=== PATIENT | female | born 1930 | race African-American/Black ===

== ENCOUNTER 2021-01-25 18:09 | Emergency (ER) | payer BC, MEDICARE ==
[~2021-01-25] VITALS: Ht 157.5 cm; Wt 61.1 kg
[2021-01-25 18:09] VITALS: BP 163/83
[2021-01-25] MEDS ORDERED: PROPOFOL 100 ML IV ONE (18:26)
[2021-01-25] MEDS ORDERED: IV NORMAL SALINE 1000ML BAG 1,000 ML IV SCH (18:30)
[2021-01-25] MEDS ORDERED: PROPOFOL 100 ML IV PRN (18:30)
--- NOTE | 2021-01-25 18:38 | PHYS DOC ---
Past Medical History Past Medical History: A-Fib, CAD, Hypertension, Stroke (with right sided weakness/deficit) Past Medical History Unable to obtain due to altered mental status Past Surgical History: Hysterectomy Past Surgical History Unable to obtain due to altered mental status Smoking Status: Former Smoker Alcohol Use: None Drug Use: None Social History Unable to obtain due to altered mental status General Adult EDM: Chief Complaint: NEURO SYMPTOMS/DEFICITS HPI: HPI: Patient is a 89-year-old female presents via EMS as code stroke. EMS reports patient was sitting eating with her family when she had reported seizure-like activity. Daughter reports her mouth "was open and full of food" and her right arm and both legs became "stiff". Patient was not responding and therefore daughter called 911. Daughter reports last known well at 1745. Hx of prior stroke. Daughter reports she thinks that there was some "bleeding involved" on prior stroke. Per [employer] review there was MRI from 01/29/15 that noted 4.2 x 2.9 cm acute infarct in anterior right cerebellar hemisphere with hemorrhagic transformation". Denies history of seizures. Denies use of blood thinners. Denies prior trauma. EMS reports Accucheck of 157 in route. History of present illness limited secondary to altered mental status Review of Systems: Review of Systems: Review of systems limited secondary to altered mental status Heart Score: C/O Chest Pain: N/A Current Medications: Current Medications Medications (Trade) Dose Ordered Sig/Claudia Start Time Stop Time Status Last Admin Dose Admin Chlorhexidine Gluconate (Peridex) 15 ml BID 01/25/21 21:00 UNV Fentanyl Citrate (Fentanyl 2ml Vial) 25 mcg PRN Q1HR PRN 01/25/21 18:30 UNV Propofol 100 ml @ 0 mls/hr CONT PRN 01/25/21 18:30 UNV Sodium Chloride 1,000 ml @ 1,000 mls/hr Q1H 01/25/21 18:30 01/25/21 19:29 UNV Allergies: Allergies: Allergies Coded Allergies Type Severity Reaction Last Updated Verified No Known Drug Allergies 01/26/15 No Physical Exam: PE: Constitutional: Elderly, unresponsive, right arm tremor HENT: Normocephalic, atraumatic, dentures with food remnants noted Eyes: Pupils 3mm, forced deviation bilaterally to right, conjunctiva normal, no discharge Neck: Kyphosis noted, supple Lungs & Thorax: Coarse breath sounds, equal chest rise and fall Abdomen: Soft, no tenderness Skin: Warm, dry, no erythema, no rash Extremities: No edema, no deformity, right arm tremor noted Neurologic: GCS 6 (eye 1, verbal 1, motor 4), right facial droop, bilateral eye forced deviation to right Current Patient Data: Vital Signs: Vital Signs Date Time Temp Pulse Resp B/P (MAP) Pulse Ox O2 Delivery O2 Flow Rate FiO2 01/25/21 18:23 100 Ventilator EKG: EKG: @1823 NSR at 63bpm, NO ST elevation, QRS 110ms, QT/QTc 414/427ms, t wave inversion aVL Radiology/Procedures: Radiology/Procedures: PROCEDURE: CHEST AP & KUB INDICATION: Status post intubation and enteric tube placement COMPARISON: January 2015 IMPRESSION: Chest: Single view obtained. Endotracheal tube midthoracic trachea. Enteric tube coursing below the diaphragm. There is some coarsening of the bilateral lung markings without a well-defined focal airspace consolidation. Degenerative changes of the spine. ABDOMEN: Single view obtained. Enteric tube is seen at the left-sided the abdomen at the expected location of the stomach. Degenerative changes the spine with scoliotic curvature. Moderate amount of stool within the colon. Air-filled distended loops of bowel are seen within the abdomen and a nonspecific pattern but causes such as ileus or obstruction not excluded on plain film. Degenerative changes the hips. Electronically signed by: Jason Rm MD (01/25/2021 7:46 PM) [id number] PROCEDURE: CT CODE STROKE HEAD WO Exam: CT head INDICATION: Stroke TECHNIQUE: Sequential axial images through the head were obtained without the administration of IV contrast. Comparisons: 02/03/2015 FINDINGS: No focal parenchymal lesion or hemorrhage is identified. There is no midline shift or sulcal effacement. Patchy hypodensity in the periventricular white matter, progressed when compared to study in 2015. Chronic appearing infarct at the right cerebellum. No acute vascular territory infarction is identified. Chu-white distinction is preserved. The ventricular system is within normal limits without compression hydrocephalus. The basal cisterns are well maintained. The visualized portions of the paranasal sinuses and mastoid air cells are well- pneumatized. No acute fractures. IMPRESSION: No acute hemorrhage. Moderate small vessel ischemic change which is progressed when compared to the prior exam in 2014. Exposure: One or more of the following in the visualized dose reduction techniques were utilized for this examination: 1. Automated exposure control 2. Adjustment of the MA and/or KV according to patient size Use of iterative of reconstructive technique FOR INTERNAL CODING PURPOSES Critical result: Findings discussed with Dr. Nguyen at 01/25/2021 6:50 PM. RESULT CODE: (C) Electronically signed by: Jairo Diamond MD (01/25/2021 6:55 PM) [facility]: CT CERVICAL SPINE WO CONTRAST Exam: CT cervical spine without contrast INDICATION: Altered mental status, fall TECHNIQUE: Sequential axial images through the cervical spine obtained without IV contrast. Sagittal and coronal reformatted images were reconstructed from the axial data and reviewed. Comparisons: CT head without contrast same day FINDINGS: Vertebral body heights and alignment are well-maintained. Fracture to the cervical spine is not identified. Multilevel spondylotic change in cervical spine with degenerative disc disease greatest at C5-C6 and C6-C7. Mild bilateral facet arthropathy is also noted. Visualized paraspinal soft tissues are unremarkable. IMPRESSION: Negative CT C-spine for acute traumatic injury. Exposure: One or more of the following in the visualized dose reduction techniques were utilized for this examination: 1. Automated exposure control 2. Adjustment of the MA and/or KV according to patient size 3. Use of iterative of reconstructive technique Electronically signed by: Jairo Diamond MD (01/25/2021 7:16 PM) [facility] Course & Med Decision Making: Course & Med Decision Making Pertinent Labs and Imaging studies reviewed. (See chart for details) Elderly patient with history of prior CVA with hemorrhagic component presents as CODE STROKE with sudden unresponsiveness and stiffness to limbs concerning for possible seizure-like activity. Patient continued with unresponsiveness and right arm tremor with forced deviation of eyes as well as right facial droop. Patient also noted to have retained food in mouth. Given GCS of 6 and concern for possible inability to protect airway, decision to place ET tube. RSI performed and ET tube successfully placed. Chest x-ray confirms placement. Patient then sent immediately to CT for imaging. CT head without acute hemorrhage. Given history of hemorrhagic component which was confirmed on MRI from 01/29/2015 per [facility] review, decision to hold TPA at this time. Discussed case and decision with Dr. Joshi (neurology), who is in agreement. Requests administration of Keppra 500mg IVPB q12 and to obtain CTA head and neck. Labs obtained and posted to chart. Lactic acid elevated likely secondary to seizure like activity. Some difficulty with IV access in order to obtain CTA. IV access achieved and CTA obtained and noted with significant clot burden to right internal carotid. Concern for need for interventional evaluation and treatment. Discussed with family regarding and requesting [facility]. Utilized [facility] transfer line. Discussed with Dr. Benja Patel (neurology) regarding. Images clouded over to [facility]. Patient requiring emergent transfer for further neurointerventional evaluation and possible treatment. Discussed with Dr. Benja Patel (neurology) who is in agreement with transfer for neurointerventional evaluation and possible treatment. Discussed findings and plan with family, who acknowledge understanding and agreement. Dragon Disclaimer: Dragon Disclaimer: This electronic medical record was generated, in whole or in part, using a voice recognition dictation system. Intubation Intubation : Intubation Method: orotracheal Tube Size (cm): 7.5 Breath Sounds after Intubation: equal Intubation Complications: no complications Post Intubation Xray: Yes Progress Emergent consent utilized. Time out performed. Hand hygiene utilized. RSI performed with 20 mg of etomidate and 50 mcg of rocuronium. [place] scope then utilized with successful placement of 7.5 ET tube which was marked 22cm at the lip. Good CO2 color change. Equal chest rise and fall with auscultation. No sounds noted over epigastrium. ET tube then secured. Chest x-ray obtained which appears to have slightly high riding ET tube. ET tube then advanced and marked 24 cm at the lip. Departure Departure Impression: Primary Impression: Altered mental status Qualified Codes: R41.82 - Altered mental status, unspecified Additional Impression: Lactic acidosis Disposition: 02 DC/TRF OTHER SHORT TERM HOS ([facility] for Neurointerventional e valuation and possible treatment) Admitting Physician: RENETTA (Manny) Condition: GUARDED Referrals: KEARA BRAVO (PCP) NIHSS Stroke Scale NIH Stroke Scale: NIH Stroke Scale Response (Comments) Value Level of Consciousness: 3 Unresponsive 3 LOC Questions: 2 Answers neither correct 2 LOC Commands: 2 Perform neither task 2 Best Gaze: 2 Forced deviation 2 Facial Palsy: 2 Partial paralysis 2 Motor - Left Arm 3 Limb falls 3 Motor - Right Arm 3 Limb falls 3 Motor - Left Leg 3 Limb falls 3 Motor: Right Leg 3 Limb falls 3 Best Language: 3 Mute 3 Dysathria: 3 Intubated 0 Extinction and Inattention: 2 Extinction 2 Total 28 Critical Care Time Critical care time was 45 minutes which includes time at bedside, spent in discussion of patient's care with specialists and/or family members, with interpretation of laboratory and/or radiological studies and is exclusive of procedures. TIM NGUYEN DO Jan 25, 2021 18:38
[2021-01-25 18:39] LABS: BASO # 0.1 x10^3/uL (0.0-0.2); BASO % 1 % (0-3); EOS # 0.3 x10^3/uL (0.0-0.7); EOS % 5 % (0-3); HEMATOCRIT 35.9 % (36.0-47.0); LYMPH # 1.8 x10^3/uL (1.0-4.8); LYMPH % 36 % (24-48); MEAN CORPUSCULAR HEMOGLOBIN 29 pg (25-35); MEAN CORPUSCULAR HGB CONC 33 g/dL (31-37); MEAN CORPUSCULAR VOLUME 88 fL (79-100); MONO # 0.5 x10^3/uL (0.0-1.1); MONO % 10 % (0-9); NEUT # 2.3 x10^3/uL (1.8-7.7); NEUT % 47 % (31-73); PLATELET COUNT 208 x10^3/uL (140-400); RED BLOOD COUNT 4.09 x10^6/uL (3.50-5.40); RED CELL DISTRIBUTION WIDTH 13.2 % (11.5-14.5)
[2021-01-25] MEDS ORDERED: ETOMIDATE 20 MG/10 ML VIAL. IV ONE ×2 (18:40→19:15)
[2021-01-25] MEDS ORDERED: ROCURONIUM 50 MG/5 ML VIAL. ONE (18:40)
[2021-01-25 18:53] LABS: PROTHROMBIN TIME PATIENT 14.2 SEC (11.7-14.0)
--- NOTE | 2021-01-25 18:57 | RAD ---
Exam: CT head INDICATION: Stroke TECHNIQUE: Sequential axial images through the head were obtained without the administration of IV co ntrast. Comparisons: 02/03/2015 FINDINGS: No focal parenchymal lesion or hemorrhage is identified. There is no midline shift or sulcal effaceme nt. Patchy hypodensity in the periventricular white matter, progressed when compared to study in 2015. Ch ronic appearing infarct at the right cerebellum. No acute vascular territory infarction is identified . Chu-white distinction is preserved. The ventricular system is within normal limits without compression hydrocephalus. The basal cisterns are well maintained. The visualized portions of the paranasal sinuses and mastoid air cells are well-pneumatized. No acute fractures. IMPRESSION: No acute hemorrhage. Moderate small vessel ischemic change which is progressed when compared to the p rior exam in 2015. Exposure: One or more of the following in the visualized dose reduction techniques were utilized for this examination: 1. Automated exposure control 2. Adjustment of the MA and/or KV according to patient size Use of iterative of reconstructive technique FOR INTERNAL CODING PURPOSES Critical result: Findings discussed with Dr. Hernandez at 01/25/2021 6:50 PM. RESULT CODE: (C) Electronically signed by: Jairo Diamond MD (01/25/2021 6:55 PM) [facility]
[2021-01-25 19:09] LABS: BILIRUBIN,URINE NEGATIVE (NEG); CLARITY,URINE CLEAR; COLOR,URINE YELLOW; NITRITE,URINE NEGATIVE (NEG); PROTEIN,URINE NEGATIVE (NEG-TRACE)
[2021-01-25] MEDS: fentaNYL PF VIAL 100 MCG/2 ML VIAL IV PRN ×3 (19:09→21:47)
[2021-01-25] MEDS ORDERED: IOHEXOL 350 MG/ML 100 ML VIAL. IV ONE (19:15)
[2021-01-25] MEDS ORDERED: ROCURONIUM 50 MG/5 ML VIAL. IV ONE (19:15)
--- NOTE | 2021-01-25 19:19 | RAD ---
Exam: CT cervical spine without contrast INDICATION: Altered mental status, fall TECHNIQUE: Sequential axial images through the cervical spine obtained without IV contrast. Sagittal and coronal reformatted images were reconstructed from the axial data and reviewed. Comparisons: CT head without contrast same day FINDINGS: Vertebral body heights and alignment are well-maintained. Fracture to the cervical spine is not identified. Multilevel spondylotic change in cervical spine with degenerative disc disease greatest at C5-C6 and C6-C7. Mild bilateral facet arthropathy is also noted. Visualized paraspinal soft tissues are unremarkable. IMPRESSION: Negative CT C-spine for acute traumatic injury. Exposure: One or more of the following in the visualized dose reduction techniques were utilized for this examination: 1. Automated exposure control 2. Adjustment of the MA and/or KV according to patient size 3. Use of iterative of reconstructive technique Electronically signed by: Jairo Diamond MD (01/25/2021 7:16 PM) [facility]
[2021-01-25 19:27] LABS: HYALINE CASTS, URINE MODERATE /HPF
[2021-01-25 19:28] LABS: AMORPHOUS SEDIMENT,UR PRESENT /HPF
[2021-01-25] MEDS ORDERED: CONTRAST GIVEN. MC PRN (19:30)
[2021-01-25] MEDS ORDERED: ASPIRIN RECTAL 300 MG SUPP. RC ONE (19:30)
[2021-01-25] MEDS ORDERED: levETIRAcetam 500 MG in IV DEXTROSE 5% 100ML 100 ML IV ONE (19:30)
[2021-01-25 19:31] LABS: RBC,URINE OCC /HPF (0-2); WBC,URINE OCC /HPF (0-4)
[2021-01-25 19:32] LABS: BACTERIA,URINE FEW /HPF (0-FEW)
--- NOTE | 2021-01-25 19:49 | RAD ---
INDICATION: Status post intubation and enteric tube placement COMPARISON: January 2015 IMPRESSION: Chest: Single view obtained. Endotracheal tube midthoracic trachea. Enteric tube coursing below the d iaphragm. There is some coarsening of the bilateral lung markings without a well-defined focal airspa ce consolidation. Degenerative changes of the spine. ABDOMEN: Single view obtained. Enteric tube is seen at the left-sided the abdomen at the expected loc ation of the stomach. Degenerative changes the spine with scoliotic curvature. Moderate amount of sto ol within the colon. Air-filled distended loops of bowel are seen within the abdomen and a nonspecifi c pattern but causes such as ileus or obstruction not excluded on plain film. Degenerative changes th e hips. Electronically signed by: Jason Rm MD (01/25/2021 7:46 PM) [id number]
[2021-01-25 20:41] LABS: GFR 71.3
[2021-01-25 20:52] LABS: CALCIUM 8.6 mg/dL (8.5-10.1); CREATININE 0.9 mg/dL (0.6-1.0); POTASSIUM 3.3 mmol/L (3.5-5.1)
[2021-01-25] MEDS ORDERED: CHLORHEXIDINE 0.12% 15 ML MOUTHWASH. MM SCH (21:00)
[2021-01-25 21:03] LABS: ALBUMIN 3.6 g/dL (3.4-5.0); MAGNESIUM 1.8 mg/dL (1.8-2.4); TOTAL BILIRUBIN 0.6 mg/dL (0.2-1.0); TOTAL PROTEIN 7.1 g/dL (6.4-8.2)
--- NOTE | 2021-01-25 22:57 | RAD ---
Exam: CTA head and neck INDICATION: Right facial droop, right eye deviation TECHNIQUE: Sequential axial images through the head and neck obtained following the administration of 75 mL of Omni 350 IV contrast. Sagittal and coronal reformatted images were reconstructed from the a xial data and reviewed. 3-D reformatted images were reconstructed from the axial data and reviewed. Comparisons: CT head without contrast same day FINDINGS: CTA neck: Visualized portions of thoracic aorta are unremarkable. There is four-vessel aortic arch configuratio n with separate origin of the left vertebral artery. Right common carotid artery is patent without evidence of stenosis, occlusion or aneurysm. There is c omplete occlusion of the cervical segment of the right internal carotid artery. Left common carotid artery is patent without evidence of stenosis, occlusion or aneurysm. Mild plaque at the origin of the right internal carotid artery without significant stenosis. Right vertebral artery is patent to basilar confluence without evidence of stenosis, occlusion or ane urysm. Left vertebral artery is patent to basilar confluence without evidence of stenosis, occlusion or aneu rysm. Visualized paraspinal soft tissues are unremarkable. CTA HEAD: The majority of the intracranial segments of the right internal carotid artery are occluded with a sh ort segment of opacification noted at the carotid terminus. The proximal right MCA is patent with re- opacification at the M2 segment with noticed oligemia. There is nonopacification of the proximal righ t anterior cerebral artery with re-opacification at the A2 A3 segment with oligemia. Intracranial segments of the left internal carotid artery are patent without evidence of stenosis, oc clusion or aneurysm. Left MCA is patent. Left MARCUS is patent. Basilar artery is patent without evidence of stenosis, occlusion or aneurysm. manager language are patent bilater ally. IMPRESSION: 1. 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 Additionally the M1 segment of the right MCA in the A1 A2 segment of the right MARCUS are nonopacified. Findings could relate to extens lorie thrombus versus large dissection. Catheter directed angiogram is recommended for further evaluati on. 2. Mild plaque at the origin of the right internal carotid artery without cement stenosis. Exposure: One or more of the following in the visualized dose reduction techniques were utilized for this examination: 1. Automated exposure control 2. Adjustment of the MA and/or KV according to patient size 3. Use of iterative of reconstructive technique FOR INTERNAL CODING PURPOSES Critical result: Findings discussed with Dr. Hernandez at 01/25/2021 10:48 PM. RESULT CODE: (C) Electronically signed by: Jairo Diamond MD (01/25/2021 10:55 PM) [facility]
[2021-01-26] MEDS: fentaNYL PF VIAL 100 MCG/2 ML VIAL IV PRN (00:05)
[2021-01-26 02:17] LABS: HCO3 COOX 23 mmol/L (21-28); PCO2 COOX 32 mmHg (35-46); PO2 COOX 199 mmHg (65-108)
[2021-01-26 02:18] LABS: BASE EXCESS COOX 1 mmol/L (-3-3); SAT O2 COOX 99 % (92-99)
[2021-01-26 02:20] LABS: METHEMOGLOBIN 0.5 % (0.0-1.9)
--- NOTE | 2021-01-26 07:30 | EKG ---
[facility] [address] [place] [address] Test Date: 2021-01-25 Test Time: 18:23:04 Pat Name: DARIEN PATTON Department: Room: Gender: F [employer]: : [id number] Requested By: TIM NGUYEN Order Number: [id number] Reading MD: Measurements Intervals [place] Rate: 63 P: MN: QRS: -64 QRSD: 110 T: 82 QT: 414 QTc: 427 Interpretive Statements IRREGULAR RHYTHM, NO P-WAVE FOUND ABNORMAL LEFT AXIS DEVIATION LEFT ANTERIOR FASCICULAR BLOCK INCOMPLETE RIGHT BUNDLE BRANCH BLOCK QRS(T) CONTOUR ABNORMALITY CONSIDER ANTEROSEPTAL MYOCARDIAL DAMAGE T ABNORMALITY IN HIGH LATERAL LEADS ABNORMAL ECG RI6.02 No previous ECG available for comparison
== END 2021-01-26 00:10 | disposition short-term general hospital (02) ==
LOC: ER 18:09
DX: R41.82 Altered mental status, unspecified (principal); E87.2 Acidosis; R56.9 Unspecified convulsions; I48.20 Chronic atrial fibrillation, unspecified; I11.9 Hypertensive heart disease without heart failure; I25.2 Old myocardial infarction; Z90.710 Acquired absence of both cervix and uterus; Z87.891 Personal history of nicotine dependence
CPT/HCPCS: 31500; 36415; 36600; 51702; 70450; 70496; 70498; 71045; 72125; 74018; 80053; 81001; 82140; 82553; 82805; 82962; 83605; 83735; 84484; 85025; 85610; 85730; 93005; 94002; 94760; 96365; 96375; 99291; J1953; J2704; J3010; J3490; J7030; J7060; Q9967